=== PATIENT | female | born 1985 | race Caucasian/White ===

== ENCOUNTER 2019-01-09 10:05 | Emergency (ER) | payer OTHER ==
[2019-01-09 10:21] VITALS: TEMP 98; BMI 23.3
--- NOTE | 2019-01-09 10:55 | EKG ---
Test Reason : Blood Pressure : / mmHG Vent. Rate : 060 BPM Atrial Rate : 060 BPM P-R Int : 134 ms QRS Dur : 074 ms QT Int : 416 ms P-R-T Axes : 063 034 040 degrees QTc Int : 416 ms NORMAL SINUS RHYTHM NORMAL ECG NO PREVIOUS ECGS AVAILABLE Confirmed by Steven Ng ([id number]) on 01/09/2019 10:55:37 AM Referred By: Confirmed By:Steven Ng
--- NOTE | 2019-01-09 11:09 | PDOC ---
History of Present Illness - General Chief Complaint: Palpitations Stated Complaint: DIZZY Time Seen by Provider: 01/09/19 10:34 History Source: Patient Exam Limitations: No Limitations Past History - Travel Traveled outside of the country in the last 30 days: No Close contact w/someone who was outside of country & ill: No - Past Medical History Allergies/Adverse Reactions: Allergies Allergy/AdvReac Type Severity Reaction Status Date / Time budesonide [From Symbicort] Allergy Intermediate Verified 01/09/19 12:28 formoterol [From Symbicort] Allergy Intermediate Verified 01/09/19 12:28 Home Medications: Ambulatory Orders Meclizine HCl [Antivert -] 25 mg PO TID #21 tablet 01/09/19 COPD: No - Suicide/Smoking/Psychosocial Hx Smoking History: Never smoked Review of Systems - Review of Systems Able to Perform ROS?: Yes Comments:: 01/09/19 12:57 CONSTITUTIONAL: Absent: fever, chills, diaphoresis, generalized weakness, malaise, loss of appetite HEENT: Absent: rhinorrhea, nasal congestion, throat pain, throat swelling, difficulty swallowing, mouth swelling, ear pain, eye pain, visual Changes CARDIOVASCULAR: Present: palpitations, chest pain Absent: loss of consciousness, irregular heart rate, peripheral edema RESPIRATORY: Absent: cough, shortness of breath, dyspnea with exertion, orthopnea, wheezing, stridor, hemoptysis GASTROINTESTINAL: Absent: abdominal pain, abdominal distension, nausea, vomiting, diarrhea, constipation, melena, hematochezia GENITOURINARY: Absent: dysuria, frequency, urgency, hesitancy, hematuria, flank pain, genital pain MUSCULOSKELETAL: Absent: myalgia, arthralgia, joint swelling SKIN: Absent: rash, itching, pallor HEMATOLOGIC/IMMUNOLOGIC: Absent: easy bleeding, easy bruising, lymphadenopathy, frequent infections ENDOCRINE: Absent: unexplained weight gain, unexplained weight loss, heat intolerance, cold intolerance NEUROLOGIC: Present: headache, dizziness Absent: focal weakness or paresthesias, unsteady gait, seizure, mental status changes, bladder or bowel incontinence PSYCHIATRIC: Absent: anxiety, depression, suicidal or homicidal ideation, hallucinations. Is the patient limited Serbian proficient: No *Physical Exam - Vital Signs Last Vital Signs Temp Pulse Resp BP Pulse Ox 98 F 71 18 121/71 100 01/09/19 10:19 01/09/19 10:19 01/09/19 10:19 01/09/19 10:19 01/09/19 10:19 - Physical Exam Comments: 01/09/19 12:58 GENERAL: Well developed, well nourished. Awake and alert. No acute distress. HEENT: Normocephalic, atraumatic. PERRLA, EOMI. No conjunctival pallor. Sclera are non- icteric. Moist mucous membranes. Oropharynx is clear. NECK: Supple. Full ROM. No JVD. Carotid pulses 2+ and symmetric, without bruits. No thyromegaly. No lymphadenopathy. CARDIOVASCULAR: Regular rate and rhythm. No murmurs, rubs, or gallops. Distal pulses are 2+ and symmetric. PULMONARY: No evidence of respiratory distress. Lungs clear to auscultation bilaterally. No wheezing, rales or rhonchi. ABDOMINAL: Soft. Non-tender. Non-distended. No rebound or guarding. No organomegaly. Normoactive bowel sounds. MUSCULOSKELETAL Normal range of motion at all joints. No bony deformities or tenderness. No CVA tenderness. EXTREMITIES: No cyanosis. No clubbing. No edema. No calf tenderness. SKIN: Warm and dry. Normal capillary refill. No rashes. No jaundice. NEUROLOGICAL: Alert, awake, appropriate. Cranial nerves 2-12 intact. No deficits to light touch and temperature in face, upper extremities and lower extremities. No motor deficits in the in face, upper extremities and lower extremities. Normoreflexic in the upper and lower extremities. Normal speech. Toes are down- going bilaterally. Gait is normal without ataxia. PSYCHIATRIC: Cooperative. Good eye contact. Appropriate mood and affect. Heart Score/ECG Review - History History: Slightly suspicious - Electrocardiogram EKG: Normal - Risk Factors Based on the list above the patient has:: No risk factors known - Troponin Troponin: </= normal limit ED Treatment Course - LABORATORY CBC & Chemistry Diagram: 01/09/19 12:00 01/09/19 12:00 Medical Decision Making - Medical Decision Making 01/09/19 12:58 The patient is a 33 y/o F with no PMH who presents to the ER with palpitations, headache, and dizziness. She states that the palpitations started approximately one week ago and she intermittently feels her heart racing. She notes that the headaches started shortly after the palpitations. She states that the pain is dull, and goes through her whole head. Today, she states the dizziness started when she woke up. She notes that movement makes her dizziness worse. She has not taken any medication for her symptoms. She saw her PCP three months ago and was in good health at that time. Denies fevers, chills, neck pain, SOB, SOB with exertion, abdominal pain, n/v/d, and urinary symptoms. A/P: palpitations, headache On exam, pt is neurologically intact with no focal findings. RRR, S1S2 present, (-) m/r/g. Lungs CTAB, (-) w/r/r Pt notes vertiginous symptoms worse with rotational movement of head Labs, EKG, Meds ordered Re-evaluate 01/09/19 14:47 All symptoms have resolved after medication EKG: NSR, rate 60 BPM. Normal intervals and axis. No acute ST-T wave changes. No PAC's or PVC's noted CK elevated to 600, dehydration? Suspect that headache was cause of symptoms DC home with PCP follow up and meclizine I discussed the physical exam findings, ancillary test results and final diagnoses with the patient. I answered all of the patient's questions. The patient was satisfied with the care received and felt comfortable with the discharge plan and treatment plan. The Patient agrees to follow up with the primary care physician/specialist within 24-72 hours. Return precautions were given. *DC/Admit/Observation/Transfer Diagnosis at time of Disposition: Palpitations, Dizziness Headache Qualifiers: Headache type: unspecified Headache chronicity pattern: acute headache Intractability: not intractable Qualified Code(s): R51 - Headache - Discharge Dispostion Disposition: HOME Condition at time of disposition: Stable Decision to Admit order: No - Referrals Referrals: Antione Cobos MD [Staff Physician] - - Patient Instructions Printed Discharge Instructions: DI for Headache Additional Instructions: You were evaluated for your headache, palpitations, and dizziness today Your lab work showed that you are dehydrated Drink plenty of fluids and get plenty of rest Take the Meclizine as directed for the dizziness Follow up with your primary care doctor this week. If you do not have a doctor, one has been given to you. Return to the ER for any new or worsening symptoms Airam smith evaluaron tu dolor de rene, palpitaciones y mareos. Parra trabajo de laboratorio demostr que est deshidratado. Shikha muchos lquidos y descanse mucho [place] la meclizina segn las indicaciones para el mareo. Anne un seguimiento con parra mdico de atencin primaria esta semana. Si no tiene un mdico, se le siddiqui dado randal. Regrese a la balbir de emergencias por cualquier sntoma nuevo o que empeore - Post Discharge Activity Forms/Work/School Notes: Back to Work
[2019-01-09] MEDS ORDERED: SODIUM CHLORIDE 1,000 ML IV STA (11:13)
[2019-01-09] MEDS ORDERED: METOCLOPRAMIDE HCL INJECTION 10 MG/2 ML VIAL IVPB ONE (11:13)
[2019-01-09] MEDS ORDERED: ACETAMINOPHEN 1000 MG/100 ML VIAL (NON FORMULARY) IVPB ONE (11:13)
[2019-01-09] MEDS ORDERED: ACETAMINOPHEN INJECTION 100 ML IVPB ONE (11:23)
[2019-01-09] MEDS ORDERED: METOCLOPRAMIDE HCL INJECTION 10 MG/2 ML VIAL ONE (11:23)
[2019-01-09 12:24] LABS: URINE APPEARANCE CLOUDY; URINE BILIRUBIN NEGATIVE (NEGATIVE); URINE COLOR YELLOW; URINE GLUCOSE (UA) NEGATIVE (NEGATIVE); URINE KETONE NEGATIVE (NEGATIVE); URINE LEUK ESTERASE NEGATIVE (NEGATIVE); URINE NITRITE NEGATIVE (NEGATIVE); URINE PROTEIN NEGATIVE (NEGATIVE); URINE UROBILINOGEN 0.2 mg/dL (0.2-1.0)
[2019-01-09 12:30] LABS: BASO % 0.5 % (0-2.0); EOS % 1.9 % (0-4.5); HEMATOCRIT 38.9 % (32.4-45.2); HEMOGLOBIN 12.9 GM/dL (10.7-15.3); LYMPH % 36.4 % (8-40); MCH 29.4 pg (25.7-33.7); MCHC 33.1 g/dl (32.0-36.0); MEAN CELL VOLUME 88.7 fl (80-96); MEAN PLT VOLUME 9.5 fl (7.5-11.1); MONO % 8.7 % (3.8-10.2); NEUT % 52.5 % (42.8-82.8); PLATELET COUNT 212 K/MM3 (134-434); RBC 4.38 M/mm3 (3.60-5.2); RDW 13.6 % (11.6-15.6); WHITE BLOOD COUNT 6.7 K/mm3 (4.0-10.0)
[2019-01-09 12:43] LABS: INR 1.03 (0.83-1.09); PROTHROMBIN TIME (PATIENT) 12.1 SEC (9.7-13.0)
[2019-01-09 13:14] LABS: ALBUMIN 3.9 g/dl (3.4-5.0); ALK PHOS 56 U/L (45-117); ANION GAP 8 MMOL/L (8-16); BILIRUBIN,TOTAL 0.4 mg/dL (0.2-1); BLOOD UREA NITROGEN 15.9 mg/dL (7-18); CALCIUM 9.2 mg/dL (8.5-10.1); CHLORIDE 105 mmol/L (98-107); CO2 23 mmol/L (21-32); CREATININE 0.4 mg/dL (0.55-1.3); GLUCOSE,RANDOM 77 mg/dL (74-106); POTASSIUM 4.6 mmol/L (3.5-5.1); SGOT/AST 40 U/L (15-37); SGPT/ALT 38 U/L (13-61); SODIUM 137 mmol/L (136-145); TOT PROT 7.4 g/dl (6.4-8.2)
--- NOTE | 2019-01-09 15:11 | PDOC ---
*Physical Exam - Vital Signs Last Vital Signs Temp Pulse Resp BP Pulse Ox 98 F 71 18 121/71 100 01/09/19 10:19 01/09/19 10:19 01/09/19 10:19 01/09/19 10:01/09/19 10:19 ED Treatment Course - LABORATORY CBC & Chemistry Diagram: 01/09/19 12:00 01/09/19 12:00 - ADDITIONAL ORDERS Additional order review: Laboratory Results 01/09/19 01/09/19 01/09/19 12:00 12:00 12:00 PT with INR 12.10 INR 1.03 Sodium Potassium Chloride Carbon Dioxide Anion Gap BUN Creatinine Est GFR (CKD-EPI)AfAm Est GFR (CKD-EPI)NonAf Random Glucose Calcium Magnesium 2.1 Total Bilirubin AST ALT Alkaline Phosphatase Creatine Kinase Creatine Kinase Index CK-MB (CK-2) Troponin I Total Protein Albumin TSH Urine Color Yellow Urine Appearance Cloudy Urine pH 8.0 Ur Specific Max 1.014 Urine Protein Negative Urine Glucose (UA) Negative Urine Ketones Negative Urine Blood Negative Urine Nitrite Negative Urine Bilirubin Negative Urine Urobilinogen 0.2 Ur Leukocyte Esterase Negative Urine HCG, Qual 01/09/19 01/09/19 12:00 12:00 PT with INR INR Sodium 137 Potassium 4.6 Chloride 105 Carbon Dioxide 23 Anion Gap 8 BUN 15.9 Creatinine 0.4 L Est GFR (CKD-EPI)AfAm 158.61 Est GFR (CKD-EPI)NonAf 136.85 Random Glucose 77 Calcium 9.2 Magnesium Total Bilirubin 0.4 AST 40 H ALT 38 Alkaline Phosphatase 56 Creatine Kinase 620 H Creatine Kinase Index No Result Required. CK-MB (CK-2) < 1.0 Troponin I < 0.02 Total Protein 7.4 Albumin 3.9 TSH 0.90 Urine Color Urine Appearance Urine pH Ur Specific Max Urine Protein Urine Glucose (UA) Urine Ketones Urine Blood Urine Nitrite Urine Bilirubin Urine Urobilinogen Ur Leukocyte Esterase Urine HCG, Qual Negative 01/09/19 12:00 RBC 4.38 MCV 88.7 MCHC 33.1 RDW 13.6 MPV 9.5 Neutrophils % 52.5 Lymphocytes % 36.4 Monocytes % 8.7 Eosinophils % 1.9 Basophils % 0.5 - Medications Given in the ED: ED Medications Discontinued Medications Generic Name Dose Route Start Last Admin Trade Name Freq PRN Reason Stop Dose Admin Acetaminophen 1,000 mg 01/09/19 11:13 01/09/19 12:00 Ofirmev Injection - IVPB 01/09/19 11:14 1,000 mg ONCE ONE Administration Diphenhydramine HCl 12.5 mg 01/09/19 11:13 01/09/19 12:00 Benadryl Injection - IVPB 01/09/19 11:14 12.5 mg ONCE ONE Administration Sodium Chloride 1,000 mls @ 1,000 mls/hr 01/09/19 11:13 01/09/19 12:00 Normal Saline - IV 01/09/19 12:12 1,000 mls/hr ASDIR STA Administration Metoclopramide HCl 10 mg 01/09/19 11:13 01/09/19 12:00 Reglan Injection - IVPB 01/09/19 11:14 10 mg ONCE ONE Administration Medical Decision Making - Medical Decision Making 01/09/19 15:09 Patient seen and evaluated with the nurse practitioner. I agree with the overall evaluation, assessment, and management with the following summary of visit: 33-year-old female presents with palpitations and episode of lightheadedness, headache. Vital signs are unremarkable, is negative Exam is normal including cardiac and neurological examinations Presentation most c/w near syncope, possibly prompted by headache. no other red flags on hx/PE. Labs are within normal limits, including troponin and urinalysis. EKG is normal Chest x-ray is normal Pt feels better, agrees with discharge plan. *DC/Admit/Observation/Transfer Diagnosis at time of Disposition: Palpitations, Dizziness Headache Qualifiers: Headache type: unspecified Headache chronicity pattern: acute headache Intractability: not intractable Qualified Code(s): R51 - Headache - Discharge Dispostion Disposition: HOME Condition at time of disposition: Stable - Prescriptions Prescriptions: Meclizine HCl [Antivert -] 25 mg PO TID #21 tablet - Referrals Referrals: Antione Cobos MD [Staff Physician] - - Patient Instructions Printed Discharge Instructions: DI for Headache Additional Instructions: You were evaluated for your headache, palpitations, and dizziness today Your lab work showed that you are dehydrated Drink plenty of fluids and get plenty of rest Take the Meclizine as directed for the dizziness Follow up with your primary care doctor this week. If you do not have a doctor, one has been given to you. Return to the ER for any new or worsening symptoms [place] te evaluaron tu dolor de rene, palpitaciones y mareos. Walker trabajo de laboratorio demostr que est deshidratado. Shikha muchos lquidos y descanse mucho [place] la meclizina segn las indicaciones para el mareo. Anne un seguimiento con walker mdico de atencin primaria esta semana. Si no tiene un mdico, se le siddiqui dado randal. Regrese a la balbir de emergencias por cualquier sntoma nuevo o que empeore - Post Discharge Activity Forms/Work/School Notes: Back to Work
[2019-01-09 15:43] VITALS: BP 102/65; PULSE 57
== END 2019-01-09 15:45 | disposition home or self-care (01) ==
LOC: JER 10:05
PROC: 3E033NZ Introduction of Analgesics, Hypnotics, Sedatives into Peripheral Vein, Percutaneous Approach (ICD-10-PCS; principal; 2019-01-09)
PROC: 3E033GC Introduction of Other Therapeutic Substance into Peripheral Vein, Percutaneous Approach (ICD-10-PCS; 2019-01-09)
PROC: 3E033GC Introduction of Other Therapeutic Substance into Peripheral Vein, Percutaneous Approach (ICD-10-PCS; 2019-01-09)
DX: R00.2 Palpitations (principal); R51 Headache; R42 Dizziness and giddiness; Z88.8 Allergy status to other drugs, medicaments and biological substances
CPT/HCPCS: 36415; 71046-TC-FY; 80053; 81003; 82550; 82553; 83735; 84443; 84484; 84703; 85025; 85610; 87086; 93005; 93010; 99283-25; J0131; J7030

== ENCOUNTER 2019-05-23 12:08 | Emergency (ER) | payer OTHER ==
[2019-05-23 12:17] VITALS: BP 100/61; PULSE 61; TEMP 98; BMI 51.3
[2019-05-23] MEDS ORDERED: DEXAMETHASONE LIQUID 0.5 MG/5 ML PO ONE (12:58)
[2019-05-23] MEDS ORDERED: ALBUTEROL SO4 0.083% IH SOL 2.5 MG/3 ML VIAL.NEB. NEB ONE (13:02)
[2019-05-23] MEDS ORDERED: DEXAMETHASONE SOD PHOSPHATE 10 MG/1 ML VIAL ONE (13:02)
[2019-05-23] MEDS: ALBUTEROL SO4 0.083% IH SOL 2.5 MG/3 ML VIAL.NEB. NEB SCH ×3 (13:06→13:31)
--- NOTE | 2019-05-23 13:48 | PDOC ---
History of Present Illness - General Chief Complaint: Asthma Stated Complaint: ASTHMA Time Seen by Provider: 05/23/19 12:47 - History of Present Illness Initial Comments: 05/23/19 13:46 33-year-old female with asthma exacerbation x4 days without systemic symptoms Past History - Past Medical History Allergies/Adverse Reactions: Allergies Allergy/AdvReac Type Severity Reaction Status Date / Time budesonide [From Symbicort] Allergy Intermediate Verified 05/23/19 12:15 formoterol [From Symbicort] Allergy Intermediate Verified 05/23/19 12:15 Home Medications: Ambulatory Orders Meclizine HCl [Antivert -] 25 mg PO TID #21 tablet 01/09/19 Asthma: Yes COPD: No - Reproductive History Tubal Ligation: Yes (2014) - Psycho Social/Smoking Cessation Hx Smoking History: Never smoked Review of Systems - Review of Systems Constitutional: No: Fever Respiratory: Yes: Cough, Wheezing *Physical Exam - Vital Signs Last Vital Signs Temp Pulse Resp BP Pulse Ox 98 F 61 18 100/61 100 05/23/19 12:15 05/23/19 12:15 05/23/19 12:15 05/23/19 12:15 05/23/19 12:15 - Physical Exam 05/23/19 13:46 GENERAL: The patient is awake, alert, and fully oriented, in no acute distress. HEAD: Normal with no signs of trauma. EYES: sclera anicteric, conjunctiva clear. ENT: Ears normal tympanic membranes normal oropharynx clear uvula midline NECK: Normal range of motion LUNGS: Decreased breath sounds at the bases without wheezing HEART: S1 and S2 without murmur, rub or gallop. ABDOMEN: Soft, nontender, normoactive bowel sounds. No guarding, no rebound. No masses. EXTREMITIES: Normal range of motion, no edema. No clubbing or cyanosis. No cords, erythema, or tenderness. NEUROLOGICAL: Cranial nerves II through XII grossly intact. PSYCH: Normal mood, normal affect. SKIN: Warm, Dry, normal turgor, no rashes or lesions noted. ED Treatment Course - Medications Given in the ED: ED Medications Discontinued Medications Generic Name Dose Route Start Last Admin Trade Name Freq PRN Reason Stop Dose Admin Albuterol Sulfate 1 amp 05/23/19 13:00 05/23/19 13:31 Ventolin 0.083% Nebulizer Soln - NEB 05/23/19 13:46 1 amp Q15M DOMINICK Administration Dexamethasone 10 mg 05/23/19 12:58 05/23/19 13:06 Decadron Liquid - PO 05/23/19 12:59 10 mg ONCE ONE Administration Medical Decision Making - Medical Decision Making 05/23/19 13:47 Full and equal breath sounds after albuterol and Decadron Discharge - Discharge Information Problems reviewed: Yes Clinical Impression/Diagnosis: Asthma exacerbation Condition: Stable Disposition: HOME - Admission No - Follow up/Referral - Patient Discharge Instructions Patient Printed Discharge Instructions: Asthma -- Adult Additional Instructions: Return to the emergency room for worsening symptoms and without fail follow-up with your primary care physician in 1 to 2 days for further evaluation and treatment options. Continue your regular medication as scheduled - Post Discharge Activity
== END 2019-05-23 13:50 | disposition home or self-care (01) ==
LOC: JERFT 12:08
PROC: 3E0F7GC Introduction of Other Therapeutic Substance into Respiratory Tract, Via Natural or Artificial Opening (ICD-10-PCS; principal; 2019-05-23)
DX: J45.901 Unspecified asthma with (acute) exacerbation (principal); Z88.8 Allergy status to other drugs, medicaments and biological substances
CPT/HCPCS: 99281-25

== ENCOUNTER 2022-07-13 10:51 | Emergency (ER) | payer BC, OTHER ==
[2022-07-13 10:59] VITALS: BMI 26.2
[2022-07-13] MEDS ORDERED: DEXAMETHASONE 4 MG TABLET (FP) PO ONE (11:59)
[2022-07-13] MEDS ORDERED: ALBUTEROL SO4 2.5/IPRATROPIUM 0.5 INH SOL 3 ML VIAL.NEB. NEB SCH (12:00)
[2022-07-13] MEDS ORDERED: DEXAMETHASONE 4 MG TABLET (FP) ONE (12:03)
[2022-07-13 14:18] VITALS: BP 108/68; PULSE 69; RESP 20; TEMP 98.6
== END 2022-07-13 14:00 | disposition home or self-care (01) ==
LOC: JER 10:51
PROC: 3E0F7GC Introduction of Other Therapeutic Substance into Respiratory Tract, Via Natural or Artificial Opening (ICD-10-PCS; principal; 2022-07-13)
DX: J45.21 Mild intermittent asthma with (acute) exacerbation (principal)
CPT/HCPCS: 0241U-QW; 93005; 93010; 99283-25

== ENCOUNTER 2023-02-09 10:45 | Emergency (ER) | payer OTHER ==
[2023-02-09 11:02] VITALS: BP 109/66; PULSE 56; RESP 18; TEMP 98.4; BMI 26.4
[2023-02-09] MEDS ORDERED: ACETAMINOPHEN 1000 MG/100 ML BAG IVPB ONE (12:34)
[2023-02-09] MEDS ORDERED: MECLIZINE HCL 25 MG TABLET (FP) PO ONE (12:34)
[2023-02-09] MEDS ORDERED: SODIUM CHLORIDE 0.9% 500 ML INFUS.BAG IV ONE (12:34)
[2023-02-09] MEDS ORDERED: MECLIZINE HCL 25 MG TABLET (FP) ONE (12:37)
[2023-02-09] MEDS ORDERED: ACETAMINOPHEN INJECTION 100 ML IVPB ONE (12:37)
[2023-02-09 13:16] LABS: BASO % 0.7 % (0-2.0); EOS % 1.9 % (0-4.5); HEMATOCRIT 38.9 % (32.4-45.2); HEMOGLOBIN 12.8 GM/dL (10.7-15.3); LYMPH % 39.2 % (8-40); MCH 26.6 pg (25.7-33.7); MCHC 32.8 g/dl (32.0-36.0); MEAN CELL VOLUME 81.1 fl (80-96); MEAN PLT VOLUME 9.5 fl (7.5-11.1); MONO % 8.9 % (3.8-10.2); NEUT % 49.3 % (42.8-82.8); PLATELET COUNT 234 10^3/uL (134-434); RDW 16.1 % (11.6-15.6); WHITE BLOOD COUNT 6.2 K/mm3 (4.0-10.0)
[2023-02-09] MEDS ORDERED: KETOROLAC TROMETHAMINE 30 MG/1 ML VIAL IVPUSH ONE (13:27)
[2023-02-09] MEDS ORDERED: KETOROLAC TROMETHAMINE 30 MG/1 ML VIAL ONE (13:29)
[2023-02-09 13:46] LABS: POTASSIUM 4.2 mmol/L (3.5-5.1)
[2023-02-09 13:48] LABS: BLOOD UREA NITROGEN 10.3 mg/dL (7-18)
[2023-02-09 13:51] LABS: CREATININE 0.6 mg/dL (0.55-1.3)
== END 2023-02-09 15:20 | disposition home or self-care (01) ==
LOC: JER 10:45
PROC: 3E033NZ Introduction of Analgesics, Hypnotics, Sedatives into Peripheral Vein, Percutaneous Approach (ICD-10-PCS; principal; 2023-02-09)
PROC: 3E0333Z Introduction of Anti-inflammatory into Peripheral Vein, Percutaneous Approach (ICD-10-PCS; 2023-02-09)
DX: R51.9 Headache, unspecified (principal); R42 Dizziness and giddiness
CPT/HCPCS: 36415; 80048; 84703; 85025; 99284-25